=== PATIENT | female | born 1975 ===

== ENCOUNTER 2017-04-28 19:12 | Emergency (ER) | payer SELFPAY ==
[~2017-04-28] VITALS: Ht 167.6 cm; Wt 73.0 kg
[2017-04-28 19:27] VITALS: Ht 167.6 cm; Wt 73.0 kg
== END 2017-04-28 23:10 | disposition left against medical advice (07) ==
LOC: E/R 19:12
DX: Z53.21 Procedure and treatment not carried out due to patient leaving prior to being seen by health care provider (principal)